=== PATIENT | male | born 1950 | race Caucasian/White ===

== ENCOUNTER 2016-12-04 21:54 | Emergency (ER) | payer MEDICARE ==
--- NOTE | 2016-12-04 22:44 | UC ---
HPI Febrile Illness - HPI Summary HPI Summary: 66 yo male with fatique x 1 week yesterday developed a fever and headache has felt short of breath and a little dizzy no cp no UTI symptoms no n/v/d he has felt somewhat confused - History of Current Complaint Chief Complaint: UCGeneralIllness Time Seen by Provider: 12/04/16 22:14 Hx Obtained From: Patient Onset/Duration: Started Hours Ago Timing: Constant Temperature: 101.9 F Initial Severity: Moderate Current Severity: None Pain Intensity: 6 - PRICE Pain Scale Used: 0-10 Numeric Associated Signs and Symptoms: Altered Mental Status - mild confusion, Chills, Headache - Allergy/Home Medications Allergies/Adverse Reactions: Allergies Allergy/AdvReac Type Severity Reaction Status Date / Time No Known Allergies Allergy Verified 12/04/16 22:03 Home Medications: Home Medications Acetaminophen [Eq Acetaminophen] 500 mg PO PRN 12/04/16 [History] Ibuprofen TAB* [Advil TAB*] 400 mg PO PRN 12/04/16 [History] PMH/Surg Hx/FS Hx/Imm Hx Previously Healthy: Yes - Surgical History Surgery Procedure, Year, and Place: INGUINAL HERNIA REPAIR X2, RIGHT FOOT SURGERY Infectious Disease History: No Infectious Disease History: Denies: Traveled Outside the [place] in Last 30 Days - Social History Alcohol Use: Rare Substance Use Type: Reports: None Smoking Status (MU): Never Smoked Tobacco Review of Systems Constitutional: Fever, Chills, Fatigue Skin: Negative Eyes: Negative ENT: Negative Respiratory: Negative Cardiovascular: Negative Gastrointestinal: Negative Genitourinary: Negative Motor: Negative Neurovascular: Negative Musculoskeletal: Negative Neurological: Negative Psychological: Negative All Other Systems Reviewed And Are Negative: Yes Physical Exam Triage Information Reviewed: Yes Appearance: No Pain Distress, Well-Nourished, Ill-Appearing Vital Signs: Initial Vital Signs Temp 98.9 F 12/04/16 21:59 Pulse 106 12/04/16 21:59 Resp 18 12/04/16 21:59 BP 92/58 12/04/16 21:59 Pulse Ox 96 12/04/16 21:59 Vital Signs Reviewed: Yes ENT: Positive: Hearing grossly normal, TMs normal. Negative: Nasal congestion, Nasal drainage, Tonsillar exudate, Trismus, Muffled/hoarse voice Neck: Positive: Supple, Nontender, No Lymphadenopathy Respiratory: Positive: Lungs clear, Normal breath sounds, No respiratory distress, No accessory muscle use Cardiovascular: Positive: RRR, No Murmur, Tachycardia Musculoskeletal: Positive: ROM Intact, No Edema Neurological: Positive: Alert Psychological Exam: Normal Skin Exam: Normal
[2016-12-04 22:52] VITALS: BP 102/66
--- NOTE | 2016-12-04 23:09 | UC ---
HPI Febrile Illness - HPI Summary HPI Summary: 66 yo male with fatique x 1 week yesterday developed a fever and headache has felt short of breath and a little dizzy no cp no UTI symptoms no n/v/d he has felt somewhat confused - History of Current Complaint Chief Complaint: UCGeneralIllness Time Seen by Provider: 12/04/16 22:14 Hx Obtained From: Patient Onset/Duration: Started Hours Ago Timing: Constant Temperature: 101.9 F Initial Severity: Moderate Current Severity: Mild Pain Intensity: 4 - frontal PRICE Pain Scale Used: 0-10 Numeric Alleviating Factors: OTC Medicine Associated Signs and Symptoms: Altered Mental Status - feels a little confused at times, Weakness - Risk Factors Pseudomonas Risk Factors: Negative Serious Bacterial Infection Risk Factors: Negative - Allergy/Home Medications Allergies/Adverse Reactions: Allergies Allergy/AdvReac Type Severity Reaction Status Date / Time No Known Allergies Allergy Verified 12/04/16 22:03 Home Medications: Home Medications Acetaminophen [Eq Acetaminophen] 500 mg PO PRN 12/04/16 [History] Ibuprofen TAB* [Advil TAB*] 400 mg PO PRN 12/04/16 [History] PMH/Surg Hx/FS Hx/Imm Hx Previously Healthy: Yes Respiratory History: Reports: Hx Pneumonia - Cancer History Hx Hematologic Symptoms: No Hx Chemotherapy: No Hx Radiation Therapy: No Hx Palliative Cancer Treatment: No - Surgical History Surgery Procedure, Year, and Place: INGUINAL HERNIA REPAIR X2, RIGHT FOOT SURGERY Infectious Disease History: No Infectious Disease History: Denies: Traveled Outside the [place] in Last 30 Days - Social History Alcohol Use: Rare Substance Use Type: Reports: None Smoking Status (MU): Never Smoked Tobacco Review of Systems Constitutional: Fever, Fatigue Skin: Negative Eyes: Negative ENT: Negative Respiratory: Shortness Of Breath Cardiovascular: Negative Gastrointestinal: Negative Genitourinary: Negative Motor: Negative Neurovascular: Negative Musculoskeletal: Negative Neurological: Headache Psychological: Negative All Other Systems Reviewed And Are Negative: Yes Physical Exam Triage Information Reviewed: Yes Appearance: No Pain Distress, Ill-Appearing Vital Signs: Initial Vital Signs Temp 98.9 F 12/04/16 21:59 Pulse 106 12/04/16 21:59 Resp 18 12/04/16 21:59 BP 92/58 12/04/16 21:59 Pulse Ox 96 12/04/16 21:59 Vital Signs Reviewed: Yes Eyes: Positive: Conjunctiva Clear ENT: Positive: Hearing grossly normal. Negative: Nasal congestion, Nasal drainage, Trismus, Muffled/hoarse voice Dental: Negative: Abscess @ Neck: Positive: Supple, Nontender Respiratory: Positive: Lungs clear, Normal breath sounds, No respiratory distress, No accessory muscle use Cardiovascular: Positive: RRR, No Murmur Abdomen Description: Positive: Nontender, No Organomegaly. Negative: CVA Tenderness (R), CVA Tenderness (L) Musculoskeletal: Positive: ROM Intact, No Edema Neurological: Positive: Fatigued Psychological Exam: Normal Skin Exam: Normal Diagnostics - Radiology No standard instances Xray Interpretation: No Acute Changes Radiology Interpretation Completed By: ED Physician - EKG Cardiac Rate: NL Cardiac Rhythm: Sinus: Normal Ectopy: None ST Segment: Normal Course/Dx - Course Course Of Treatment: initial VS showed him to be a little hpotensive and tachycardic. He states his be runs low (usually 110/70). [place] [facility] [place]. Will go via POV - Diagnoses Clinic Provider Diagnoses: febrile illness of uncertain cause Discharge - Discharge Plan Condition: Guarded Disposition: AGAINST MEDICAL ADVICE Referrals: No Primary Care Phys,NOPCP [Primary Care Provider] -
--- NOTE | 2016-12-05 06:59 | RAD ---
INDICATION: Fever. COMPARISON: There are no prior studies available for comparison. TECHNIQUE: Dual-energy PA and lateral views of the chest were obtained. FINDINGS: The heart is within normal limits in size. Mediastinal and hilar contours appear within normal limits. The lungs are hyperinflated and clear. No pleural effusion is seen. IMPRESSION: FINDINGS SUGGESTIVE OF COPD, NO EVIDENCE FOR ACUTE FINDING.
== END 2016-12-04 23:05 | disposition left against medical advice (07) ==
LOC: UCEAST 21:54
DX: R50.9 Fever, unspecified (principal)
CPT/HCPCS: 71020; 81003; 93005; 99202; G0463

== ENCOUNTER 2016-12-04 23:21 | Emergency (ER) | payer MEDICARE ==
[2016-12-04] MEDS ORDERED: NS 0.9% 1000 ML* 1,000 ML IV ONE (23:58)
[2016-12-05 00:27] LABS: Hematocrit 45 % (42-52); Hemoglobin 14.9 g/dl (14.0-18.0); Mean Corpuscular HGB Conc 33 g/dl (31-36); Mean Corpuscular Hemoglobin 29 pg (27-31); Mean Corpuscular Volume 89 fL (80-94); Mean Platelet Volume 7 um3 (7.4-10.4); Red Blood Count 5.06 10^6/ul (4.0-5.4); Red Cell Distribution Width 13 % (10.5-15); White Blood Count 11.3 10^3/ul (3.5-10.8)
[2016-12-05 00:32] LABS: Add Diff/Slide Review? Slide Review Added; Comments Flag Yes
[2016-12-05 00:41] LABS: Albumin 3.8 g/dL (3.2-5.2); BUN/Creatinine Ratio 9.5 (8-20); Calcium 8.8 mg/dL (8.6-10.3); EGFR African American 90.9 (>60); EGFR Non-African American 70.7 (>60); Globulin 3.4 g/dL (2-4); Potassium 3.6 mmol/L (3.5-5.0); Total Bilirubin 1.2 mg/dL (0.2-1.0); Total Protein 7.2 g/dL (6.4-8.9)
[2016-12-05 00:43] LABS: Troponin I 0.01 ng/mL (<0.04)
--- NOTE | 2016-12-05 02:15 | ED ---
Nicolette Hodges Rebecca, scribed for Justus Childress MD on 12/05/16 at 0209 . Headache - HPI Summary HPI Summary: Pt is a 66 y/o M who presents to ED c/o diffuse PRICE. PRICE began yesterday when his lower teeth were moving together and was constant all day. PRICE is currently mild , ranked 2/10 which is improved significantly from previously when it was moderate (6/10). Sx aggravated by nothing, alleviated by Motrin taken last evening. Additionally c/o fever. Denies dental pain. Prior similar episodes of his teeth moving together without presence of PRICE. He has been evaluated by his dentist for prior episodes of teeth movement. - History Of Current Complaint Chief Complaint: EDHeadache Stated Complaint[facility] Time Seen by Provider: 12/05/16 02:08 Hx Obtained From: Patient Onset/Duration: Started days ago - Yesterday, Still Present Initially Headache Was: Moderate - 6/10 Currently Pain Is: Current Pain Scale(0-10)= - 2/10, Mild Timing: Constant Location of Headache: Diffuse Aggravating Factor: Nothing Allevating Factors: Medication - Motrin Associated Signs And Symptoms: Fever - Allergies/Home Medications Allergies/Adverse Reactions: Allergies Allergy/AdvReac Type Severity Reaction Status Date / Time No Known Allergies Allergy Verified 12/04/16 23:53 PMH/Surg Hx/FS Hx/Imm Hx Cardiovascular History: Denies: Hx Coronary Artery Disease Respiratory History: Reports: Hx Chronic Obstructive Pulmonary Disease (COPD), Hx Pneumonia - Cancer History Hx Hematologic Symptoms: No Hx Chemotherapy: No Hx Radiation Therapy: No Hx Palliative Cancer Treatment: No - Surgical History Surgery Procedure, Year, and Place: INGUINAL HERNIA REPAIR X2, RIGHT FOOT SURGERY - Immunization History Date of Tetanus Vaccine: unk Date of Influenza Vaccine: unk Infectious Disease History: No Infectious Disease History: Denies: Traveled Outside the [place] in Last 30 Days - Family History Known Family History: Negative: Hypertension - Social History Alcohol Use: Rare Substance Use Type: Reports: None Smoking Status (MU): Never Smoked Tobacco Review of Systems Positive: Fever Negative: Dental Pain Positive: Headache All Other Systems Reviewed And Are Negative: Yes Physical Exam Triage Information Reviewed: Yes Vital Signs On Initial Exam: Initial Vitals Temp Pulse Resp BP Pulse Ox 98.3 F 82 20 99/65 94 12/04/16 23:32 12/04/16 23:32 12/04/16 23:32 12/04/16 23:32 12/04/16 23:32 Vital Signs Reviewed: Yes Appearance: Positive: Well-Appearing, No Pain Distress Skin: Positive: Warm Head/Face: Positive: Normal Head/Face Inspection. Negative: Temporal Artery Tenderness Eyes: Positive: EOMI, STEPHANIE ENT: Positive: Hearing grossly normal Neck: Positive: Supple, Nontender Respiratory/Lung Sounds: Positive: Breath Sounds Present Cardiovascular: Positive: RRR Abdomen Description: Positive: Nontender, Soft Bowel Sounds: Positive: Present Musculoskeletal: Positive: Strength/ROM Intact Neurological: Positive: Alert, Oriented to Person Place, Time - [place] Coma Scale Coma Scale Total: 15 Diagnostics - Vital Signs Vital Signs Temp Pulse Resp BP Pulse Ox 12/04/16 23:49 97.9 F 83 18 103/71 94 12/04/16 23:32 98.3 F 82 20 99/65 94 - Laboratory Lab Results: Lab Results 12/05/16 12/05/16 12/05/16 Range/Units 00:15 00:15 00:15 WBC 11.3 H (3.5-10.8) 10^3/ul RBC 5.06 (4.0-5.4) 10^6/ul Hgb 14.9 (14.0-18.0) g/dl Hct 45 (42-52) % MCV 89 (80-94) fL MCH 29 (27-31) pg MCHC 33 (31-36) g/dl RDW 13 (10.5-15) % Plt Count 262 (150-450) 10^3/ul MPV 7 L (7.4-10.4) um3 Neut % (Auto) 62.6 (38-83) % Lymph % (Auto) 20.8 L (25-47) % [place] % (Auto) 14.1 H (1-9) % Eos % (Auto) 1.6 (0-6) % Baso % (Auto) 0.9 (0-2) % Absolute Neuts (auto) 7.1 (1.5-7.7) 10^3/ul Absolute Lymphs (auto) 2.4 (1.0-4.8) 10^3/ul Absolute Monos (auto) 1.6 H (0-0.8) 10^3/ul Absolute Eos (auto) 0.2 (0-0.6) 10^3/ul Absolute Basos (auto) 0.1 (0-0.2) 10^3/ul Absolute Nucleated RBC 0 10^3/ul Nucleated RBC % 0 INR (Anticoag Therapy) (0.89-1.11) D-Dimer, Quantitative (Less Than 230) ng/mL Sodium 132 L (133-145) mmol/L Potassium 3.6 (3.5-5.0) mmol/L Chloride 101 (101-111) mmol/L Carbon Dioxide 24 (22-32) mmol/L Anion Gap 7 (2-11) mmol/L BUN 10 (6-24) mg/dL Creatinine 1.05 (0.67-1.17) mg/dL Est GFR ( Amer) 90.9 (>60) Est GFR (Non-Af Amer) 70.7 (>60) BUN/Creatinine Ratio 9.5 (8-20) Glucose 101 H (70-100) mg/dL Lactic Acid 1.1 (0.5-2.0) mmol/L Calcium 8.8 (8.6-10.3) mg/dL Total Bilirubin 1.20 H (0.2-1.0) mg/dL AST 18 (13-39) U/L ALT 28 (7-52) U/L Alkaline Phosphatase 89 (34-104) U/L Troponin I 0.01 (<0.04) ng/mL C-Reactive Protein 2.00 (< 5.00) mg/L Total Protein 7.2 (6.4-8.9) g/dL Albumin 3.8 (3.2-5.2) g/dL Globulin 3.4 (2-4) g/dL Albumin/Globulin Ratio 1.1 (1-3) 12/05/16 Range/Units 00:15 WBC (3.5-10.8) 10^3/ul RBC (4.0-5.4) 10^6/ul Hgb (14.0-18.0) g/dl Hct (42-52) % MCV (80-94) fL MCH (27-31) pg MCHC (31-36) g/dl RDW (10.5-15) % Plt Count (150-450) 10^3/ul MPV (7.4-10.4) um3 Neut % (Auto) (38-83) % Lymph % (Auto) (25-47) % [place] % (Auto) (1-9) % Eos % (Auto) (0-6) % Baso % (Auto) (0-2) % Absolute Neuts (auto) (1.5-7.7) 10^3/ul Absolute Lymphs (auto) (1.0-4.8) 10^3/ul Absolute Monos (auto) (0-0.8) 10^3/ul Absolute Eos (auto) (0-0.6) 10^3/ul Absolute Basos (auto) (0-0.2) 10^3/ul Absolute Nucleated RBC 10^3/ul Nucleated RBC % INR (Anticoag Therapy) 1.06 (0.89-1.11) D-Dimer, Quantitative < 200 (Less Than 230) ng/mL Sodium (133-145) mmol/L Potassium (3.5-5.0) mmol/L Chloride (101-111) mmol/L Carbon Dioxide (22-32) mmol/L Anion Gap (2-11) mmol/L BUN (6-24) mg/dL Creatinine (0.67-1.17) mg/dL Est GFR ( Amer) (>60) Est GFR (Non-Af Amer) (>60) BUN/Creatinine Ratio (8-20) Glucose (70-100) mg/dL Lactic Acid (0.5-2.0) mmol/L Calcium (8.6-10.3) mg/dL Total Bilirubin (0.2-1.0) mg/dL AST (13-39) U/L ALT (7-52) U/L Alkaline Phosphatase (34-104) U/L Troponin I (<0.04) ng/mL C-Reactive Protein (< 5.00) mg/L Total Protein (6.4-8.9) g/dL Albumin (3.2-5.2) g/dL Globulin (2-4) g/dL Albumin/Globulin Ratio (1-3) Result Diagrams: 12/05/16 00:15 12/05/16 00:15 Lab Statement: Any lab studies that have been ordered have been reviewed, and results considered in the medical decision making process. Re-Evaluation - Re-Evaluation First Eval Change: Improved - pain free, results d/w pt Headache Course/Dx - Course Assessment/Plan: Pt is a 66 y/o M who presents to ED c/o constant, diffuse PRICE since yesterday when his lower teeth were moving together. PRICE is currently mild , ranked 2/10 which is improved significantly from before when it was moderate ( 6/10). Sx alleviated by Motrin taken last evening. Additionally c/o fever. Denies dental pain. Prior similar episodes of his teeth moving together without presence of PRICE. He has been evaluated by his dentist for prior episodes of teeth movement. WBC of 11.3. He will be D/C to home with Dx of PRICE. He understands and agrees. - Diagnoses Provider Diagnoses: Headache Discharge - Discharge Plan Condition: Improved Disposition: HOME Patient Education Materials: General Headache (ED) Referrals: Urszula PATEL,Patricia Serrato [Primary Care Provider] - 3 Days Additional Instructions: RETURN TO THE EMERGENCY DEPARTMENT FOR ANY RETURNING OR WORSENING SYMPTOMS. The documentation as recorded by the Nicolette macias Rebecca accurately reflects the service I personally performed and the decisions made by me, Justus Childress MD.
[2016-12-05 02:33] VITALS: BP 103/65
== END 2016-12-05 02:34 | disposition home or self-care (01) ==
LOC: ED 23:21
DX: R51 Headache (principal); J44.9 Chronic obstructive pulmonary disease, unspecified
CPT/HCPCS: 36415; 80053; 83605; 84484; 85025; 85379; 85610; 86140; 87040; 96360; 99282